=== PATIENT | female | born 1970 | race Caucasian/White ===

== ENCOUNTER 2020-11-24 15:22 | Outpatient (CLI) | payer BC ==
--- NOTE | 2020-11-24 16:13 | ULT ---
EXAM: US Breast Limited Rt PROVIDED CLINICAL HISTORY: Abnormal mammogram COMPARISON: Diagnostic mammogram 11/24/2020 FINDINGS: Limited sonographic interrogation was performed of the right breast in the region of mammographic con cern. There is no sonographic abnormality evident corresponding to the mammogram finding. Simple appearing cysts are seen at the 9:00 position of the right breast 7 cm from the nipple. IMPRESSION: No sonographic correlate is evident for the architectural distortion seen mammographically. Correlati on with breast MRI is recommended. BI-RADS 0 -- incomplete assessment
--- NOTE | 2020-11-24 16:14 | MMO ---
Right Breast MAMMO Unilat Diag [facility]DI RT+NARCISO. CLINICAL HISTORY: Patient is 50 years old and is seen for diagnostic exam. VIEWS: The views performed were: right craniocaudal spot compression with tomosynthesis; right mediolateral oblique spot compression with tomosynthesis; and right mediolateral with tomosynthesis. FILMS COMPARED: The present examination has been compared to prior imaging studies performed at [facility] on 07/27/2020, at [facility] on 11/24/2020, and at [facility] on 08/28/2016. This study has been interpreted with the assistance of computer-aided detection. MAMMOGRAM FINDINGS: There are scattered fibroglandular densities. There is an area of architectural distortion seen in the right breast at 9 o'clock. Sonography of this region demonstrates no correlate. IMPRESSION: AREA OF ARCHITECTURAL DISTORTION IN THE RIGHT BREAST REQUIRES ADDITIONAL EVALUATION. BREAST MRI IS RECOMMENDED. THE RESULTS OF THIS EXAM WERE SENT TO THE PATIENT. ACR BI-RADS Category 0 - Incomplete: Need additional imaging evaluation. [facility] will notify the patient of the need for additional imaging services. MAMMOGRAPHY NOTE: 1. A negative mammogram report should not delay a biopsy if a dominant of clinically suspicious mass is present. 2. Approximately 10% to 15% of breast cancers are not detected by mammography. 3. Adenosis and dense breasts may obscure an underlying neoplasm. Reported by: JANICE BARRAZA MD Electonically Signed: [id number]
== END 2020-11-24 15:23 | disposition home or self-care (01) ==
LOC: BICMAMMO 15:22
PROVIDERS: ATTEND Obstetrics & Gynecology
DX: N63.10 Unspecified lump in the right breast, unspecified quadrant (principal); N64.89 Other specified disorders of breast
CPT/HCPCS: G0279

== ENCOUNTER 2021-01-30 14:48 | Outpatient (CLI) | payer BC | END 2021-01-30 14:49 | disposition home or self-care (01) | LOC: BICMRI 14:48 | PROVIDERS: ATTEND Obstetrics & Gynecology | DX: N63.10 Unspecified lump in the right breast, unspecified quadrant (principal) | CPT/HCPCS: A9577; C8908 ==

== ENCOUNTER 2021-09-14 14:32 | Outpatient (CLI) | payer BC | END 2021-09-14 14:33 | disposition home or self-care (01) | LOC: BICMRI 14:32 | PROVIDERS: ATTEND Obstetrics & Gynecology | DX: N63.10 Unspecified lump in the right breast, unspecified quadrant (principal) | CPT/HCPCS: 77066; A9577; C8908; G0279 ==

== ENCOUNTER 2023-07-22 12:37 | Outpatient (CLI) | payer BC | END 2023-07-22 12:38 | disposition home or self-care (01) | LOC: BICMRI 12:37 | PROVIDERS: ATTEND Obstetrics & Gynecology | DX: R92.8 Other abnormal and inconclusive findings on diagnostic imaging of breast (principal) | CPT/HCPCS: A9577; C8908 ==